=== PATIENT | male | born 1985 | race Caucasian/White ===

== ENCOUNTER 2023-05-26 22:56 | Emergency (ER) | payer MEDICAID ==
[~2023-05-26] VITALS: Ht 185.4 cm; Wt 102.1 kg
[2023-05-26 23:04] VITALS: BP_SYST 148; PULSE 78; RESP 18; TEMP 98.1; O2SAT 97
[2023-05-27] MEDS: DEXAMETHASONE SOD PHOSPHATE 4 MG/ML VIAL PO ONE (00:07)
[2023-05-27] MEDS: cefTRIAXone 1 GM in LIDOCAINE 1%, 20 ML MDV 2.1 ML IM ONE (00:07)
[2023-05-27] MEDS ORDERED: AUG875 PO (00:24)
[2023-05-27] MEDS ORDERED: DEC4 PO (00:24)
[2023-05-27 00:29] VITALS: BP_SYST 148; PULSE 78; RESP 18; TEMP 98.1; O2SAT 97
== END 2023-05-27 00:29 | disposition home or self-care (01) ==
LOC: SED 22:56
DX: J02.9 Acute pharyngitis, unspecified (principal); Z88.2 Allergy status to sulfonamides; Z79.899 Other long term (current) drug therapy
CPT/HCPCS: 99283; 96372; J0696; J1100; J2001

== ENCOUNTER 2023-07-30 11:08 | Emergency (ER) | payer MEDICAID ==
[~2023-07-30] VITALS: Ht 185.4 cm; Wt 97.5 kg
[2023-07-30 11:08] VITALS: BP_SYST 160; PULSE 99; RESP 18; TEMP 97.2; O2SAT 99
[~2023-07-30 11:08] MED LIST: AUG875 PO; DEC4 PO
[2023-07-30] MEDS: DEXAMETHASONE SOD PHOSPHATE 10 MG/ML VIAL IM ONE (11:51)
[2023-07-30] MEDS: KETOROLAC TROMETHAMINE 30 MG VIAL IM ONE (12:54)
[2023-07-30] MEDS ORDERED: AMOX875T2 PO (13:03)
[2023-07-30] MEDS ORDERED: IBUP-1969 PO (13:03)
[2023-07-30] MEDS ORDERED: AUG875 PO (13:13)
[2023-07-30 13:16] VITALS: TEMP 97.2
[2023-07-30 13:17] VITALS: BP_SYST 152; PULSE 88; RESP 20; O2SAT 98
== END 2023-07-30 13:17 | disposition home or self-care (01) ==
LOC: SED 11:08
DX: J02.9 Acute pharyngitis, unspecified (principal); Z88.2 Allergy status to sulfonamides; Z79.899 Other long term (current) drug therapy
CPT/HCPCS: 99284; 86403; 36415; 96372; 87081; J1100; J1885

== ENCOUNTER 2023-09-16 01:17 | Emergency (ER) | payer MEDICAID ==
[~2023-09-16] VITALS: Ht 185.4 cm; Wt 115.7 kg
[~2023-09-16 01:17] MED LIST changes: +IBUP-1969 PO
[2023-09-16 01:20] VITALS: BP_SYST 121; PULSE 107; RESP 16; TEMP 98.3; O2SAT 95
[2023-09-16 02:12] LABS: BASOPHILS % (AUTO) 0.5 % (0.0-2.0); EOSINOPHILS # (AUTO) 0.2 K/uL (0.0-0.4); EOSINOPHILS % (AUTO) 1.7 % (0.0-4.0); HEMATOCRIT 39.3 % (36-54); HEMOGLOBIN 13.7 g/dL (14.0-18.0); LYMPHOCYTES # (AUTO) 1.8 K/uL (1.0-5.5); LYMPHOCYTES % (AUTO) 19.4 % (20.5-51.5); MEAN CORPUSCULAR HEMOGLOBIN 31 pg (27-31); MEAN CORPUSCULAR HGB CONC 35 % (32-36); MEAN CORPUSCULAR VOLUME 90 fL (79.0-98.0); MONOCYTES # (AUTO) 0.7 K/uL (0.0-1.0); MONOCYTES % (AUTO) 7.8 % (1.7-9.3); NEUTROPHILS # (AUTO) 6.6 K/uL (1.8-7.7); NEUTROPHILS % (AUTO) 70.6 % (40.0-70.0); PLATELET COUNT (AUTO) 206 K/uL (130-430); RED BLOOD CELL COUNT(AUTO) 4.38 MIL/uL (4.2-6.2); RED CELL DISTRIBUTION WIDTH 13.6 % (9.0-15.0); WHITE BLOOD COUNT (AUTO) 9.3 K/uL (4.8-10.8)
[2023-09-16 02:36] LABS: ALBUMIN 3.4 g/dL (3.4-4.8); CALCIUM 8.4 mg/dL (8.4-11.0); CREATININE 1.09 mg/dL (0.55-1.30); POTASSIUM 3.6 mmol/L (3.5-5.1); TOTAL BILIRUBIN 0.5 mg/dL (0.0-1.0); TOTAL PROTEIN, SERUM 6.9 g/dL (6.4-8.3)
[2023-09-16 02:40] LABS: ERYTHROCYTE SEDIMENTATION RATE 4 MM/HR (0-15)
[2023-09-16 02:45] LABS: BILIRUBIN,DIRECT 0.1 mg/dL (0.0-0.3)
[2023-09-16 02:48] LABS: PROTHROMBIN TIME 10.5 SECS (9.5-12.5)
[2023-09-16 04:16] LABS: BILIRUBIN,URINE 1+ (NEGATIVE); BLOOD, URINE NEGATIVE (NEGATIVE); CLARITY/URINE CLEAR (CLEAR); COLOR,URINE YELLOW (YELLOW); GLUCOSE,URINE NEGATIVE (NEGATIVE); KETONES,URINE TRACE (NEGATIVE); LEUKOCYTE ESTERASE ,URINE NEGATIVE (NEGATIVE); NITRITE, URINE NEGATIVE (NEGATIVE); PROTEIN URINE TRACE (NEGATIVE)
[2023-09-16 04:33] LABS: BACTERIA,URINE None Seen /HPF (None Seen); RBC,URINE 0-3 /HPF (0-3); WBC,URINE 0-3 /HPF (0-3)
[2023-09-16] MEDS ORDERED: CEPH-548 PO (05:03)
[2023-09-16 05:12] VITALS: BP_SYST 152; PULSE 82; RESP 18; TEMP 98.6; O2SAT 98
[2023-09-16 05:25] LABS: BARBITURATE, URINE NEGATIVE (NEG <=200); BENZODIAZEPINE, URINE NEGATIVE (NEG <=150); CANNABINOID, URINE POSITIVE (NEG <=50); COCAINE, URINE POSITIVE (NEG <=150); METHAMPHETAMINES SCREEN,URINE POSITIVE (NEG <=500); OPIATE, URINE NEGATIVE (NEG <=100); PHENCYCLIDINE SCREEN,URINE NEGATIVE (NEG <=25); UR TRICYCLIC ANTIDEPRESSANTS NEGATIVE (NEG <=300); URINE AMPHETAMINE POSITIVE (NEG <=500); URINE METHADONE NEGATIVE (NEG <=200); URINE OXYCODONE SCREEN NEGATIVE (NEG <=100)
== END 2023-09-16 05:21 | disposition home or self-care (01) ==
LOC: SED 01:17
DX: L03.115 Cellulitis of right lower limb (principal); R14.0 Abdominal distension (gaseous); E66.9 Obesity, unspecified; Z88.2 Allergy status to sulfonamides; Z79.899 Other long term (current) drug therapy; Z79.2 Long term (current) use of antibiotics; Z68.33 Body mass index [BMI] 33.0-33.9, adult
CPT/HCPCS: 36415; 80048; 80076; 80307; 81000; 81001; 81015; 83690; 85025; 85610; 85651; 93970; 99284